=== PATIENT | male | born 1960 | race Two or more races ===

== ENCOUNTER 2021-10-31 19:16 | Emergency (ER) | payer SELFPAY ==
[~2021-10-31] VITALS: Ht 157.5 cm; Wt 63.5 kg
[2021-10-31 20:22] VITALS: BP 110/60
--- NOTE | 2021-10-31 20:41 | NUR ---
PT WALKED OUT OF THE ER WITH BEING SEEN BY THE MD.
== END 2021-10-31 20:48 | disposition home or self-care (01) ==
LOC: ER 19:28
DX: Z53.21 Procedure and treatment not carried out due to patient leaving prior to being seen by health care provider (principal); M25.532 Pain in left wrist